=== PATIENT | male | born 1985 | race African-American/Black ===

== ENCOUNTER 2017-04-22 16:13 | Emergency (ER) | payer SELFPAY ==
[2017-04-22] MEDS ORDERED: Ketorolac INJ* 60 MG/2 ML VIAL IM ONE (17:55)
--- NOTE | 2017-04-22 17:57 | ED ---
Throat Pain/Nasal Congestion - HPI Summary HPI Summary: 31M presents with dental pain for two weeks. on amoxicillin and taking viciodin by [facility]. He states the pain radiates to his neck. He denies any difficulty swallowing, chest pain or SOB. He states the pain is worst with eating cold and hot food and with air over the area. He does not have a follow up appointment with the dentist. He did not call the dentist. He denies any fever. He denies any drainage from the area. - History of Current Complaint Chief Complaint: EDDentalPain Time Seen by Provider: 04/22/17 17:33 - Allergies/Home Medications Allergies/Adverse Reactions: Allergies Allergy/AdvReac Type Severity Reaction Status Date / Time No Known Allergies Allergy Verified 04/22/17 16:22 PMH/Surg Hx/FS Hx/Imm Hx Endocrine/Hematology History: Denies: Hx Anticoagulant Therapy Cardiovascular History: Denies: Hx Hypertension Infectious Disease History: No Infectious Disease History: Denies: Traveled Outside the [place] in Last 30 Days - Family History Known Family History: Negative: Hypertension - Social History Alcohol Use: Rare Substance Use Type: Reports: None Smoking Status (MU): Current Every Day Smoker Review of Systems Negative: Fever Positive: Dental Pain Negative: Chest Pain Negative: Shortness Of Breath All Other Systems Reviewed And Are Negative: Yes Physical Exam Triage Information Reviewed: Yes Vital Signs On Initial Exam: Initial Vitals Temp Pulse Resp BP Pulse Ox 98.7 F 75 16 142/77 98 04/22/17 16:18 04/22/17 16:18 04/22/17 16:18 04/22/17 16:18 04/22/17 16:18 Vital Signs Reviewed: Yes Appearance: Positive: Well-Appearing Skin: Positive: Warm, Dry Head/Face: Positive: Normal Head/Face Inspection Eyes: Positive: Normal, Conjunctiva Clear ENT: Positive: Normal ENT inspection, Pharynx normal, TMs normal, Other - no submandibular tenderness. Negative: Trismus Dental: Positive: Gross Decay/Caries @ - 32,31, Dental Fracture @ - 31. Negative: Abscess @, Bleeding Neck: Positive: Supple, Nontender, No Lymphadenopathy Respiratory/Lung Sounds: Positive: Clear to Auscultation, Breath Sounds Present Cardiovascular: Positive: Normal, RRR Diagnostics - Vital Signs Vital Signs Temp Pulse Resp BP Pulse Ox 04/22/17 16:18 98.7 F 75 16 142/77 98 - Laboratory Lab Statement: Any lab studies that have been ordered have been reviewed, and results considered in the medical decision making process. EENT Course/Dx - Course Course Of Treatment: 31M presents with dental pain for two weeks. on amoxicillin and taking viciodin by [facility]. He states the pain radiates to his neck. He denies any difficulty swallowing, chest pain or SOB. He states the pain is worst with eating cold and hot food and with air over the area. He does not have a follow up appointment with the dentist. He did not call the dentist. He denies any fever. on exam no abscess seen. no submandular tenderness, no trismus. explained that likely has never pain as nerve root exposed in one of the back teeth and that is why is having referred pain. do not suspect ludwings or any systemic infection at this point. told to follow up with denist to have teeth removed. patient understands and agrees with plan. - Differential Diagnoses Differential Diagnoses: Dental Abscess, Dental Caries, Fractured Tooth - Diagnoses Provider Diagnoses: Dental infection Discharge - Discharge Plan Condition: Good Disposition: HOME Patient Education Materials: Toothache (ED) Referrals: [facility] [Outside] Additional Instructions: Continue antibiotics Use ibuprofen every 6 hours and narcotic for break through pain at night as prescribed by dentist Avoid hard, crunchy food until seen by dentist Follow up with dentist as soon as possible Return to ED if develop fever, shortness of breath, or any new or worsening symptoms Establish care with primary care physician Images - Images Dental: 1 - pain, cavitites
[2017-04-22 18:22] VITALS: BP 139/78
== END 2017-04-22 18:20 | disposition home or self-care (01) ==
LOC: EDBD → ED 16:13
DX: K08.89 Other specified disorders of teeth and supporting structures (principal)
CPT/HCPCS: 96372; 99281; J1885

== ENCOUNTER 2018-03-16 19:03 | Emergency (ER) | payer SELFPAY ==
[2018-03-16 19:34] VITALS: BP 145/83
--- NOTE | 2018-03-16 19:58 | UC ---
Randy Bhatia Jade, scribed for Abad Fitzpatrick MD on 03/16/18 at 1929 . Skin Complaint HPI - HPI Summary HPI Summary: Pt is a 32 y/o male who [place] [facility] [place]. He states the cyst on his tailbone has been hurting for 3 days, and he has a PMHx of pilonidal cysts. Pain is rated 10/10 in severity, and is described as throbbing. In the past, his cysts have not been needed to be drained and antibiotics cured them. He states he has not been feeling sick. No PMHx MRSA. - History of Current Complaint Time Seen by Provider: 03/16/18 19:10 Stated Complaint: TAILBONE PAIN Hx Obtained From: Patient Onset/Duration: Gradual Onset, Lasting Days - 3, Still Present Current Severity: Severe Pain Intensity: 10 Pain Scale Used: 0-10 Numeric Location: Other - Tailbone Character: Pain, Redness Aggravating Factor(s): Touch, Other - Sitting down Alleviating Factor(s): Nothing - Allergy/Home Medications Allergies/Adverse Reactions: Allergies Allergy/AdvReac Type Severity Reaction Status Date / Time No Known Allergies Allergy Verified 03/16/18 19:12 Review of Systems Constitutional: Fever - Mild Skin: Other - Cyst on tailbone, pain All Other Systems Reviewed And Are Negative: Yes PMH/Surg Hx/FS Hx/Imm Hx - Additional Past Medical History Additional PMH: Pilonidal cysts Endocrine History: Other - NEGATIVE: anticoagulant therapy Other Endocrine History: . Cardiovascular History: Other - NEGATIVE: HTN Other Cardiovascular History: . Other History Of: Negative For: Anticoagulant Therapy - Family History Known Family History: Negative: Hypertension - Social History Alcohol Use: Rare Substance Use Type: None Smoking Status (MU): Current Every Day Smoker Household Exposure Type: Cigarettes Physical Exam - Summary Physical Exam Summary: General: well-appearing, no pain distress Skin: warm, color reflects adequate perfusion, dry. 7 cm by 4 cm cellulitis on the left side of the luteal cleft, erythematous, tender to palpation. No palpable fluid collection for drainage. Head: normal Eyes: EOMI, [place] ENT: normal Neck: supple, nontender Respiratory: CTA, breath sounds present Cardiovascular: RRR Abdomen: soft, nontender Bowel: present Musculoskeletal: normal, strength/ROM intact Neurological: sensory/motor intact, A&O x3 Psychological: affect/mood appropriate Triage Information Reviewed: Yes Vital Signs: Initial Vital Signs Temp 100.9 F 03/16/18 19:12 Pulse 99 03/16/18 19:12 Resp 20 03/16/18 19:12 BP 145/83 03/16/18 19:12 Pulse Ox 98 03/16/18 19:12 Vital Signs Reviewed: Yes Course/Dx - Course Course Of Treatment: THERE WAS NO DRAINABLE ABSCESS ON EXAM. F/U PMD. WE DISCUSSED GETTING RECHECK SOONER IF WORSE. - Diagnoses Provider Diagnoses: LEFT GLUTEAL Cellulitis Discharge - Sign-Out/Discharge Documenting (check all that apply): Discharge/Admit/Transfer - Discharge - Discharge Plan Condition: Stable Disposition: HOME Prescriptions: Clindamycin Cap(NF) [Clindamycin Cap 300 mg Cap(NF)] 300 mg PO Q6H #40 cap oxyCODONE/Acetamin 5/325 MG* [Percocet 5/325 TAB*] 1 tab PO Q4H PRN #20 tab MDD 6 PRN Reason: Pain Patient Education Materials: Cellulitis (ED) Referrals: [facility] [place] [facility] [Outside] No Primary Care Phys,NOPCP [Primary Care Provider] - Additional Instructions: FOLLOW UP WITH YOUR DOCTOR. GET RECHECKED FOR ANY WORSENING OF YOUR CONDITION OR QUESTIONS OR CONCERNS. - Billing Disposition and Condition Condition: STABLE Disposition: Home The documentation as recorded by the Randy ray Jade accurately reflects the service I personally performed and the decisions made by me, Abad Fitzpatrick MD.
== END 2018-03-16 19:30 | disposition home or self-care (01) ==
LOC: UCEAST 19:03
DX: L03.317 Cellulitis of buttock (principal); F17.210 Nicotine dependence, cigarettes, uncomplicated; Z87.2 Personal history of diseases of the skin and subcutaneous tissue
CPT/HCPCS: 99212; G0463

== ENCOUNTER 2018-03-20 08:46 | Emergency (ER) | payer SELFPAY ==
[2018-03-20 08:59] VITALS: BP 162/87
[2018-03-20] MEDS ORDERED: Lidocaine 2% PF * 5 ML VIAL INJ ONE (08:59)
--- NOTE | 2018-03-20 09:00 | UC ---
Skin Complaint HPI - HPI Summary HPI Summary: 32 yo male presents with abscess vs cyst to upper buttocks. He tells me that he was seen here a few days ago and placed on antibiotics. He is here today because he thinks it is ready to drain. Denies fever, chills. - History of Current Complaint Hx Obtained From: Patient Onset/Duration: Gradual Onset Timing: Constant Onset Severity: Severe Current Severity: Severe Pain Intensity: 10 Pain Scale Used: 0-10 Numeric <Lucas Gtz - Last Filed: 03/20/18 09:33> <Paul Pack - Last Filed: 03/20/18 13:48> - History of Current Complaint Time Seen by Provider: 03/20/18 08:56 Stated Complaint: WOUND RECHECK - Allergy/Home Medications Allergies/Adverse Reactions: Allergies Allergy/AdvReac Type Severity Reaction Status Date / Time No Known Allergies Allergy Verified 03/20/18 09:00 Review of Systems Constitutional: Negative Skin: Other - Abscess upper buttocks Respiratory: Negative Cardiovascular: Negative Gastrointestinal: Negative Neurovascular: Negative Neurological: Negative Psychological: Negative All Other Systems Reviewed And Are Negative: Yes <Lucas Gtz - Last Filed: 03/20/18 09:33> PMH/Surg Hx/FS Hx/Imm Hx - Additional Past Medical History Additional PMH: None Previously Healthy: Yes Other History Of: Negative For: Anticoagulant Therapy - Surgical History Surgical History: None - Family History Known Family History: Positive: None Negative: Hypertension - Social History Lives: With Family Alcohol Use: Rare Substance Use Type: None Smoking Status (MU): Current Every Day Smoker Household Exposure Type: Cigarettes <Lucas Gtz - Last Filed: 03/20/18 09:33> Physical Exam - Summary Physical Exam Summary: GENERAL: NAD. WDWN. No pain distress. SKIN: Superior intergluteal cleft with 3.0cm abscess and surrounding 5.0cm erythema and significant tenderness. No streaking, bleeding, or drainage. NECK: Supple. Nontender. No lymphadenopathy. CHEST: No accessory muscle use. Breathing comfortably and in no distress. CV: RRR. Without m/r/g. NEURO: Alert. CN II-XII grossly intact. PSYCH: Age appropriate behavior. Triage Information Reviewed: Yes Vital Signs: Vital Signs: Temp Pulse Resp BP Pulse Ox 99 F 80 18 162/87 99 06/24/18 08:55 03/20/18 08:55 03/20/18 08:55 03/20/18 08:55 03/20/18 08:55 Vital Signs Reviewed: Yes <UlissesLucas Licona Last Filed: 03/20/18 09:33> Vital Signs: Initial Vital Signs Temp 99 F 03/20/18 08:55 Pulse 80 03/20/18 08:55 Resp 18 03/20/18 08:55 BP 162/87 03/20/18 08:55 Pulse Ox 99 03/20/18 08:55 <Paul Pack - Last Filed: 03/20/18 13:48> Course/Dx - Course Course Of Treatment: A time out was performed, witnessed, and signed. 2mL of 2% lidocaine without epi was administered and good anesthetization was achieved. The abscess was incised with a #11 blade and copious purulent matter was able to be expressed. iStop checked and ok - Diagnoses Provider Diagnoses: Abscess buttocks <Stone Gtzothy Monae Marek Filed: 03/20/18 09:33> Procedures - Incision and Drainage Left Posterior Buttocks Anesthesia: Local, Lidocaine Instrument(s): Scalpel <UlissesLucas Jara Filed: 03/20/18 09:33> Discharge - Sign-Out/Discharge Documenting (check all that apply): Discharge/Admit/Transfer - Billing Disposition and Condition Condition: STABLE Disposition: Home <Lucas Gtz Marek Filed: 03/20/18 09:33> - Billing Disposition and Condition Condition: STABLE Disposition: Home <Paul Pack Last Filed: 03/20/18 13:48> - Discharge Plan Condition: Stable Disposition: HOME Prescriptions: oxyCODONE/Acetamin 5/325 MG* [Percocet 5/325 TAB*] 1 tab PO Q6H PRN #16 tab MDD 4 PRN Reason: Pain Patient Education Materials: Pilonidal Cyst (ED) Referrals: No Primary Care Phys,NOPCP [Primary Care Provider] - Matheus Boyce MD [Medical Doctor] - If Needed Additional Instructions: If you develop a fever, shortness of breath, chest pain, new or worsening symptoms - please call your PCP or go to the ED. Your blood pressure was high at todays visit. Please see your primary provider within 4 weeks for recheck and re-evaluation. 1) If your cyst returns, please call the surgeon at the number below to schedule a follow up appointment for removal 2) Keep taking your antibiotic Per institutional requirements, I have reviewed the chart, however, I was not consulted specifically or made aware of this patient by the above midlevel provider. I did not personally evaluate, interact with , or disposition this patient.
== END 2018-03-20 09:40 | disposition home or self-care (01) ==
LOC: UCEAST 08:46
DX: L02.31 Cutaneous abscess of buttock (principal); F17.210 Nicotine dependence, cigarettes, uncomplicated
CPT/HCPCS: 10060; 10080; 99212; G0463